=== PATIENT | female | born 1945 | race Caucasian/White ===

== ENCOUNTER 2024-07-26 13:30 | Outpatient (AMB) | payer MEDICARE, SELFPAY ==
--- NOTE | 2024-07-26 13:37 | ACNOTE_ITS ---
Vital Signs 07/26/24 13:47 Height 1.65 m Height Method Stated Weight 66.224 kg Weight Measurement Method Standing Scale BMI 24.3 BP 118/70 Blood Pressure Source Automatic Cuff Blood Pressure Location Left Upper Arm Position Sitting Respiration 17 Pulse 88 Pulse Source Monitor Temp 98.1 F Temp Source Oral Pulse Oximetry (%) 98 Oxygen Delivery Method Room Air Allergies/Meds Allergies & Medications Allergies No Known Allergies Allergy (Verified 07/30/24 10:25) Medication Reconciliation No Known Home Medications 07/26/24 [History Confirmed 07/30/24] MA Intake Visit Data Collection New Patient or Established: New Patient (never been to [facility]) Seen by Clinical Staff ONLY (RN/MA): No Pain Present Currently: No Pain scale:: 0 Pain Scale Used: Shoemaker-Tabor/[employer] Required: No PCP or OBGYN visit in last 3 months: No Hx Now: No Do You Feel Safe at Home: Yes Authorities Contacted: N/A Smoking Status Smoking Status: Former smoker Immunization / Flu Flu Vaccine in the Last 12 Months: No Flu Vaccine Exclusion Criteria: No Exclusion Criteria Past Medical History Social History SMOKING STATUS: Smoking status: Former smoker Patient Portal Questionaires Social History Tobacco History Smoking Status: Former smoker Domestic Abuse History Do You Feel Safe at Home: Yes Review of Systems Report any current symptoms Only answer those that you have currently: Past Medical History Past Medical History Have you ever been diagnosed with any of the following: History of Present Illness HPI Narrative Ms. Issa is a 79 year old female with past medical hx significant for remote smoking hx of 30 pack years and basal cell carcinoma of the skin who presented to the office after presenting with worsening productive cough, postnasal drip, and congestion status post COVID infection on 06/24/2024. Patient states that she has been having productive cough and congestion for the last few years however worsened after being infected with COVID. Associated symptoms include sleeping with 1 pillow, and often waking up at night with her cough. Patient recently traveled from [place] to [place] to visit her family for the [place] break. Patient's , also was briefly hospitalized for COVID-19 pneumonia and her son-in-law recently tested positive for influenza A. Patient has tried [id number] Flonase and allergic medications which has helped with the symptoms. Patient denies any chest pain, dizziness, night sweats, or swelling in her lower extremities. Past medical history: As mentioned above Meds: None other than her [id number] allergy medications and decongestion, phenylephrine Allergies: NKDA Social history: Denies any hazardous occupational exposures, stop smoking in the , denies any alcohol or other illicit drug use. Review of Systems Review of Systems Systems Reviewed: All systems reviewed, normal except as documented Objective/Exam Narrative Physical exam: General Appearance: Pt in NAD laying comfortably in bed. HEENT: NC/AT, no scleral icterus, no conjunctival pallor, MMM, no erythema noted in throat mucosa Lungs: CTAB, no wheezes or crackles appreciated CVS: RRR, S1/S2 heard, no murmurs or rubs appreciated, no JVD ABD: Soft, non-tender, non-distended, BS + in all 4 quadrants EXT: no deformity/edema/lesions/cyanosis/clubbing, radial pulses 2+ BL, DP pulses 2 + BL SKIN: Skin exam normal without any rashes. Neuro: A&O x 3. No gross neurological deficits. Motor and sensory grossly intact in B/L UL and LL. Psych: Appropriate mood and affect Assessment & Plan Diagnosis / Problem List (1) Cough: Status: Acute Qualifiers: Cough type: subacute Qualified Code(s): R05.2 - Subacute cough Assessment & Plan: Patient presented with worsening productive cough s/p COVID infection. Associated symptoms include postnasal drip and congestion. Patient has tried OTC Sudafed, Pseudoephedrine and Flonase which has helped with some relief of symptoms, but doesn't take it daily. Plan: -Ordered outpatient CXR to r/o any infectious processes -Ordered Influenza A/B and RSV studies (2) COVID-19: Status: Resolved Orders: Orders XR chest 2V 07/26/24 R05.9 - Cough, unspecified, U07.1 - COVID-19 Comprehensive Metabolic Panel 07/26/24 Z00.00 - Encounter for general adult medical examination without abnormal findings Urgent Care RSV Ag 07/26/24 R05.9 - Cough, unspecified, U07.1 - COVID-19 CBC 07/26/24 Z00.00 - Encounter for general adult medical examination without abnormal findings Ambulatory Hemoglobin A1C 07/26/24 Z00.00 - Encounter for general adult medical examination without abnormal findings Lipid Panel 07/26/24 Z00.00 - Encounter for general adult medical examination without abnormal findings Influenza A & B Rapid Panel 07/26/24 R05.9 - Cough, unspecified, U07.1 - COVID- 19 Additional Assessment Patient's care and plan discussed with my attending, Dr. Jackson. Daniela Ya, PGY-2 Internal Medicine Attending Note: Case discussed with and agree with note and management plan of Resident Physician as per Resident's Note above. Issues of concern for present visit are as follows: New patient to clinic. Presents with worsening productive cough status post COVID infection. Of note, had exposure to family member with influenza A, also recently hospitalized with mild pneumonia post-COVID. Has used OTC meds with some symptom relief. Denies fever. Does have smoking history but quit over 30 years ago. Agree with chest x-ray to look for any infectious process as well as influenza A/B and RSV studies. Without any current fever and stable vital signs, would hold off on empiric antibiotics. Await results of testing. Routine labs ordere d today including CBC to look for leukocytosis, and CMP. Eliel Jackson MD Advanced Care Planning Advance care planning discussed with:: patient Physician Billing New Patient New Patient: E/M Level 3-CPT 59687 Office Procedures [facility] Level of Care Nursing/Assessment Patient Status: Initial/New Patient Nursing Assessment/Reassessment: Medication Reconciliation, Update PMH in EMR and Vital Signs Coordination of Care: Complex Care and Chronic Disease 1-5, Consent,records obtained, informed consent, Education Simp Pt/Fam and Staff clarify orders New Patient Charge New Patient Point Assignment: [id number] New Patient Point Charge: MEETING/EVENT PLANNER Level 3 ([id number])
[2024-07-26 13:47] VITALS: BP 118/70; PULSE 88; RESP 17; TEMP 36.7; O2SAT 98; BMI 24.3
== END 2024-07-26 15:17 | disposition home or self-care (01) ==
LOC: HODAHC 13:30
PROVIDERS: PCP Student in an Organized Health Care Education/Training Program; Referring Provider Student in an Organized Health Care Education/Training Program; Supervising Provider Internal Medicine; Visit Provider Student in an Organized Health Care Education/Training Program
DX: R05.2 Subacute cough (principal); Z86.16 Personal history of COVID-19
CPT/HCPCS: 99203; G0463

== ENCOUNTER → 2024-07-26 | Outpatient (CLI) | payer MEDICARE, SELFPAY ==
--- NOTE | 2024-07-26 15:51 | XR_ITS ---
Examination: PA lateral chest 2 views TECHNIQUE: Upright PA lateral chest 2 views Exam date and time: July 26, 2024 1550 hours INDICATIONS: Post Covid, coughing one month FINDINGS: Normal heart size Scarring versus residual infiltrate, mild in the lingular segment Prominent osteopenia IMPRESSION: Scarring versus mild residual pneumonia in the lingular segment left upper lobe, clinical correlation advised
== END | disposition home or self-care (01) ==
PROVIDERS: PCP Student in an Organized Health Care Education/Training Program; Referring Provider Student in an Organized Health Care Education/Training Program; Visit Provider Student in an Organized Health Care Education/Training Program
DX: R91.8 Other nonspecific abnormal finding of lung field (principal); U07.1 COVID-19
CPT/HCPCS: 71046

== ENCOUNTER → 2024-07-28 | Outpatient (CLI) | payer MEDICARE, SELFPAY ==
[2024-07-28 10:30] LABS: Basophils % (Auto) 1 % (0-2.5); Eosinophils # (Auto) 0.2 Thou/mm3 (0.0-0.5); Eosinophils % (Auto) 3 % (0-10); Hematocrit 38.3 % (36.0-46.0); Hemoglobin 12.9 g/dL (12.0-16.0); Immature Granulocytes % (Auto) 1 % (0-0); Immature Granulocytes Auto 0.03 Thou/mm3 (0.00-0.00); Lymphocytes # (Auto) 1.8 Thou/mm3 (1.0-4.8); Lymphocytes % (Auto) 34 % (10-50); Mean Corpuscular HGB Conc 33.7 g/dl (31.0-37.0); Mean Corpuscular Hemoglobin 29.1 pg (25.0-35.0); Mean Corpuscular Volume 87 fL (80-100); Monocytes # (Auto) 0.4 Thou/mm3 (0.0-0.8); Monocytes % (Auto) 8 % (0-12); Neutrophils % (Auto) 55 % (37-80); Nucleated Red Blood Cell % 0 /100 WBC (0); Platelet Count 340 Thou/mm3 (140-440); RDW Standard Deviation 40.9 fL (36.4-46.3); Red Blood Count 4.43 Miln/mm3 (4.00-5.20); White Blood Count 5.4 Thou/mm3 (3.6-11.0)
[2024-07-28 10:43] LABS: Glucose Estimated Average 166 mg/dL (80-131); Hemoglobin A1C 7.4 % Hgb (4.8-6.0)
[2024-07-28 11:14] LABS: Alanine Aminotransferase 16 U/L (10-49); Albumin, Serum 4.7 gm/dL (3.4-4.8); Albumin/Globulin Ratio 2.5 (1.2-2.2); Alkaline Phosphatase 80 U/L (46-116); Anion Gap 11 (7-16); BUN/Creatinine Ratio 18 Ratio (12-20); Bilirubin,Total 0.4 mg/dL (0.3-1.2); Blood Urea Nitrogen 14 mg/dL (9-23); Calcium 9.2 mg/dL (8.3-10.6); Calcium (Corrected) 9.2 mg/dL (8.5-10.1); Carbon Dioxide 26.5 mMol/L (20.0-31.0); Cardiac Risk Estimate 3.9 RATIO (3.7-5.6); Chloride 103 mMol/L (98-107); Cholesterol 215 mg/dL (132-200); Creatinine (Component) 0.8 mg/dL (0.6-1.3); Globulin 1.9 gm/dL (2.3-3.5); Glucose 199 mg/dL (74-106); HDL Cholesterol 55 mg/dL (40-60); LDL Cholesterol,Calculated 131 mg/dL (0-130); Osmolality,Calculated 285 (275-295); Potassium 4.9 mMol/L (3.4-5.1); Sodium 140 mMol/L (136-145); Total Protein 6.6 gm/dL (5.7-8.2); Triglycerides 145 mg/dL (30-150); eGFR > 60 See Note
[2024-07-28 11:34] LABS: Aspartate Amino Transferase 13 U/L (0-34)
[2024-07-28 12:01] LABS: Influenza A Ag Negative; Influenza B Ag Negative; Respiratory Syncytial Virus Ag Negative (Negative)
== END | disposition home or self-care (01) ==
LOC: COPL 08:57
PROVIDERS: PCP Student in an Organized Health Care Education/Training Program; Referring Provider Student in an Organized Health Care Education/Training Program; Visit Provider Student in an Organized Health Care Education/Training Program
DX: Z00.00 Encounter for general adult medical examination without abnormal findings (principal); U07.1 COVID-19; R05.9 Cough, unspecified
CPT/HCPCS: 36415; 80053; 80061; 83036; 85025; 87502; 87634

== ENCOUNTER 2024-07-30 10:02 | Outpatient (AMB) | payer MEDICARE, SELFPAY ==
[2024-07-30 10:18] VITALS: BP 128/22; PULSE 89; RESP 18; TEMP 36.7; O2SAT 97; BMI 24.2
--- NOTE | 2024-07-30 10:18 | PD.RESCLINIC ---
Vital Signs 07/30/24 10:18 Height 1.65 m Height Method Stated Weight 65.941 kg Weight Measurement Method Standing Scale BMI 24.2 BP 128/22 L Blood Pressure Source Automatic Cuff Blood Pressure Location Left Upper Arm Position Sitting Respiration 18 Pulse 89 Pulse Source Monitor Temp 98.1 F Temp Source Oral Pulse Oximetry (%) 97 Oxygen Delivery Method Room Air Allergies/Meds Allergies & Medications Allergies No Known Allergies Allergy (Verified 07/30/24 10:25) Medication Reconciliation atorvastatin 20 mg tablet 20 mg PO QHS #30 tabs 07/30/24 [Rx] MA Intake Visit Data Collection New Patient or Established: Established Patient (seen at [facility] within 3 years) Seen by Clinical Staff ONLY (RN/MA): No Pain Present Currently: No Pain scale:: 0 Pain Scale Used: Shoemaker-Tabor/Numerical Pcb Designer Required: No PCP or OBGYN visit in last 3 months: Yes Hx Now: No Do You Feel Safe at Home: Yes Authorities Contacted: N/A Smoking Status Smoking Status: Former smoker Immunization / Flu Flu Vaccine in the Last 12 Months: No Flu Vaccine Exclusion Criteria: No Exclusion Criteria Past Medical History Social History SMOKING STATUS: Smoking status: Former smoker Patient Portal Questionaires Social History Tobacco History Smoking Status: Former smoker Domestic Abuse History Do You Feel Safe at Home: Yes Review of Systems Report any current symptoms Only answer those that you have currently: Past Medical History Past Medical History Have you ever been diagnosed with any of the following: History of Present Illness HPI Narrative Ms. Issa is a 79-year-old female, past medical history of basal cell carcinoma skin, remote history of smoking, 30 pack years, comes in for a follow-up visit, who was last seen in this office for lingering upper respiratory tract symptoms of congestion and dry cough, On 07/26/2024, following COVID-19 infection around [place] and recent exposure to influenza A, currently reported mild postnasal drip and dry cough, but no shortness of breath or fever. Reported symptomatic improvement with Flonase. We went over the chest x-ray, and labs including CBC, CMP, HbA1c and lipid profile, chest x-ray had shown scarring in the lingular segment of left upper lobe, less likely pneumonia given patient's clinical presentation, CBC within normal limits, no leukocytosis or left shift, CMP showed normal liver and renal function, A1c 7.4%, lipid profile shows elevated cholesterol and LDL, negative influenza AB and RSV serology. Patient recently came to [place] to visit her family for break, is originally from [place] and has a primary care physician in [place], patient is aware of A1c level 7%, but had previously decided to proceed with lifestyle modifications and dietary changes. Review of Systems Review of Systems Narrative Review of Systems: General: Denies fevers or chills HEENT: Endorses for congestion , post nasal drip Heart: Denies chest pain or palpitations Lungs: Denies shortness of breathbut endorses occassional dry cough Abdomen: Denies diarrhea, nausea, vomiting, constipation, bright red blood per rectum or melena Genitourinary: Denies frequency, urgency, dysuria, or hematuria Musculoskeletal: Denies joint pain, denies muscular pain Neurology: Denies any numbness, tingling Review of systems otherwise negative except what is mentioned above. Objective/Exam Narrative Physical exam: General Appearance:Sitting in chair comfortably, in no acute distress HEENT: NC/AT, no scleral icterus, no conjunctival pallor, MMM, no erythema noted in throat mucosa Lungs: CTAB, no wheezes or crackles appreciated CVS: RRR, S1/S2 heard, no murmurs or rubs appreciated, no JVD ABD: Soft, non-tender, non-distended, BS + in all 4 quadrants EXT: no deformity/edema/lesions/cyanosis/clubbing, radial pulses 2+ BL, DP pulses 2 + BL SKIN: Skin exam normal without any rashes. Neuro: A&O x 3. No gross neurological deficits. Motor and sensory grossly intact in B/L UL and LL. Psych: Appropriate mood and affect Assessment & Plan Diagnosis / Problem List (1) Cough: Status: Acute Qualifiers: Cough type: subacute Qualified Code(s): R05.2 - Subacute cough Assessment & Plan: Lingering upper respiratory symptoms including congestion and postnasal drip with cough following COVID-19 around time, reported recent exposure to influenza A, but negative RSV influenza AB serology testing. Patient has been taking Flonase and Sudafed [id number], currently takes Flonase which has provided symptomatic relief. Chest x-ray reported as scarring versus pneumonia, given the clinical presentation, less concerned about pneumonia as no fever or leukocytosis, nonproductive cough, possible scarring due to prior respiratory tract infection. Can follow-up with repeat chest imaging at a later date if any worsening of symptoms is noted. Plan: ? Continue taking Flonase. (2) Diabetes type 2: Status: Acute Assessment & Plan: Patient recently came to [place] to visit her family for [place] break, is originally from [place] and has a primary care physician in [place], patient reported that she is aware of A1c level last year, which was 7%, but had previously decided to proceed with lifestyle modifications and dietary changes after discussing with her primary physician. We went over the fact that dietary changes including cutting back on refined sugars and increasing physical activity to up to 150 minutes every week can improve A1c but given continued uptrend in A1c pharmacologic measures should also be considered, I offered starting the patient on metformin, but she would prefer lifestyle modifications, currently takes coffee every day with 4 teaspoons of sugar, and prosper genie every day. Patient agreed to switching from coffee to tea with less sugar and cutting back on sodas. Patient reported no paresthesias in her extremities or vision changes. Plan: ? Lifestyle modifications for now, including increasing activity and cutting back on refined sugars. ? Patient requested sending her medical records to the primary care physician in [place], and she will follow-up with repeat A1c at her primary doctor's office. Will consider pharmacologic measures at that point. ? Counseled regarding reaching out to primary care for schedule podiatry and process treater appointment. (3) Hyperlipidemia associated with type 2 diabetes mellitus: Status: Acute Assessment & Plan: History of diabetes mellitus for the last 1 year, currently managed with lifestyle and dietary changes, reportedly A1c 7% last year, now A1c 7.4%, associated hyperlipidemia with increasing cholesterol and LDL levels, currently does not report any chest discomfort or shortness of breath. Considering remote history of [id number] smoking as well as risk factors for coronary artery disease, patient agreed to starting low-dose statin In addition to lifestyle changes. Plan: ? Atorvastatin 20 mg/day Additional Assessment Internal Medicine Attending Note: Case discussed with and agree with note and management plan of Resident Physician as per Resident's Note above. Issues of concern for present visit are as follows: Follow-up visit. Chest x-ray reviewed, shows some lingular scarring, no discrete infiltrate or findings that would suggest infectious process. Testing for specific viruses negative. CBC within normal limits. Of note, elevated cholesterol levels as well as hemoglobin A1c of 7.4. Patient does report previous hemoglobin A1c of 7.0 obtained at her usual primary care physician's office. Resident physician reviewed diet and exercise measures and lifestyle changes that may help with lowering glucose. Trial of medication offered but declined by patient. Offer of continuous glucose monitor or fingerstick glucose monitor offered to patient, declined at this time. Patient agreeable to starting on atorvastatin 20 mg nightly. Copies of records to be sent to patient's primary care physician, she wishes to follow-up with him regarding the lab findings. Have advised dietary and lifestyle measures in the meantime to help bring blood sugars under better control. May continue OTC meds for postnasal drip and residual dry cough. Eliel Jackson MD Advanced Care Planning Advance care planning discussed with:: patient and child Physician Billing Established Patient Established Patient: E/M Level 3-CPT 32565 Office Procedures [facility] Level of Care Nursing/Assessment Patient Status: Established Patient Nursing Assessment/Reassessment: Medication Reconciliation, Update PMH in EMR and Vital Signs Coordination of Care: Complex Care and Chronic Disease 1-5, Consent,records obtained, informed consent, Education Simp Pt/Fam, Results/Orders obtained and Staff clarify orders Established Patient Charge Established Patient Point Assignment: 90 Established Patient Point Charge: Level 3 (80-115)
== END 2024-07-30 11:05 | disposition home or self-care (01) ==
LOC: HODAHC 10:02
PROVIDERS: PCP Student in an Organized Health Care Education/Training Program; Referring Provider Student in an Organized Health Care Education/Training Program; Supervising Provider Student in an Organized Health Care Education/Training Program; Visit Provider Student in an Organized Health Care Education/Training Program
DX: E11.9 Type 2 diabetes mellitus without complications (principal); R05.2 Subacute cough; E78.5 Hyperlipidemia, unspecified; Z87.891 Personal history of nicotine dependence
CPT/HCPCS: 99213; G0463